=== PATIENT | female | born 2000 | race African-American/Black ===

== ENCOUNTER 2021-11-26 00:01 | Observation (INO) ==
[2021-11-26] MEDS ORDERED: KETOROLAC TROMETHAMINE 15 MG/ML VIAL IV STA (00:23)
[2021-11-26] MEDS ORDERED: ONDANSETRON INJ 2 MG/ML 2 ML VIAL IV STA ×2 (00:23→02:43)
--- NOTE | 2021-11-26 00:23 | Emergency Department Note ---
History of Present Illness General Chief complaint: Vomiting Stated complaint: VOMITING/CHILLS/DIARRHEA,NICHOLSON Time Seen by Provider: 11/26/21 00:12 History of Present Illness Maximum Pain Intensity: 8 This is a 21-year-old female that presents to the emergency department via private vehicle with complaints of "vomiting, chills, diarrhea, abdominal pain". Patient notes diarrhea over the past 2 days. Abdominal pain that started this morning, just under 24 hours ago. She then felt nauseous and slightly dizzy. She then notes that every time she goes to eat she vomits and has diarrhea. She has not been able to eat since yesterday. She does feel fever/chills at times. She denies any cough, rhinorrhea, chest pain, blood in the stool or vomit. The patient also notes generalized but also right lower quadrant abdominal pain which she currently rates as an 8/10. She does note a history of kidney stones as well as proteinuria. No allergies. No surgical history. She does note that she ate taco and [employer] just before this all started. She also notes a recent medication adjustment with addition of Seroquel 25 mg about 1 week ago Home Medications Medication Instructions Recorded Confirmed Type ondansetron HCl 4 mg tablet 4 mg PO Q8 PRN 10/12/21 11/26/21 History sertraline 50 mg tablet 50 mg PO HS 10/12/21 11/26/21 History quetiapine 25 mg tablet (Seroquel) 25 mg PO HS 11/26/21 11/26/21 History triamcinolone acetonide 0.5 % 1 applic TOPICAL BID 11/26/21 11/26/21 History topical cream Allergies Allergy/AdvReac Type Severity Reaction Status Date / Time No Known Allergies Allergy Verified 11/26/21 00:40 Past Med/Surg History Medical History Anxiety and depression HTN (hypertension) PCOS (polycystic ovarian syndrome) Proteinuria Right kidney stone Vitamin D deficiency Surgical History H/O wisdom tooth extraction Family History Grandmother Breast cancer Diabetes Hypertension Father Hypertension Diabetes Grandfather Diabetes Hypertension Social History Smoking Status: Never smoker Preferred Language: Korean current occupational status: student Feels Safe at Home: Yes Review of Systems A total of 10 systems reviewed and were otherwise negative Physical Exam Vital Signs Vital Signs - 24 hr 11/26/21 00:05 11/26/21 00:41 11/26/21 02:07 Temperature 36.3 C L Temperature Source Temporal Artery Scan Pulse Rate 113 H Pulse Rate [Finger] 102 H 99 H Pulse Rhythm [Finger] Regular Respiratory Rate 16 20 20 Respiratory Effort / Characteristics Non-Labored Spontaneous Non-Labored Non-Labored Spontaneous Respiratory Depth Normal Normal Respiratory Pattern Regular Regular Blood Pressure 119/62 Blood Pressure [Left Arm] 145/91 H 148/91 H Blood Pressure Mean 81 Blood Pressure Mean [Left Arm] 109 110 Blood Pressure Position Sitting Blood Pressure Position [Left Arm] Lying Pulse Oximetry 96 100 99 Oxygen Delivery Method Room Air Room Air Sepsis Recent Fever Within 48 Hours No Sepsis New/Unexplained Change in Mental Status N/A Sepsis Action Taken by Nursing No Action Required VITAL SIGNS - Vital signs and nursing notes were reviewed. Tachycardic, otherwise stable. GENERAL -21-year-old female appearing her stated age who is in no acute distress. Communicates well with provider and answers questions appropriately. SKIN - Without rashes. No meningeal or petechial rash. HEAD - NC/AT. EYES - PERRL with EOMI bilaterally. Sclera anicteric. MOUTH/OROPHARYNX - Without perioral cyanosis. Buccal mucosa pink and moist and without leukoplakia. NECK - Neck with FROM. No nuchal rigidity. LUNGS - Chest wall symmetric without accessory muscle use, intercostals retractions, or central cyanosis. Normal vesicular breath sounds CTA B/L. No wheezes, rales, or rhonchi appreciated. CARDIAC - RRR with S1/S2. No murmur, rubs, or gallops appreciated. ABDOMEN - Abdominal contour normal without pulsations or visible masses. BS normoactive all four quadrants. Generalized abdominal tenderness palpation, favoring the right lower quadrant region. No guarding or rigidity. No palpable masses, hepatosplenomegaly, or ascites noted. EXTREMITIES - No clubbing or peripheral cyanosis. +5/5 strength noted in UE/LE bilaterally. NEUROLOGIC - Cranial nerves II through XII grossly intact. PSYCH - A&O, and cooperates fully with examiner. Pt is very pleasant and interacts well with examiner. Course Administered Medications Discontinued Medications Sodium Chloride (Nss 1000ml) 1,000 mls @ 999 mls/hr IV .Q1H1M AUDELIA Stop: 11/26/21 01:30 Last Infusion: 11/26/21 01:58 Dose: 0 mls/hr Documented by: [id number] Admin: 11/26/21 00:36 Dose: 999 mls/hr Documented by: [id number] Sodium Chloride (Nss 1000ml) 1,000 mls @ 999 mls/hr IV .Q1H1M AUDELIA Stop: 11/26/21 03:45 Last Admin: 11/26/21 02:39 Dose: 999 mls/hr Documented by: [id number] Magnesium Sulfate/Dextrose (Magnesium Sulfate / D5w) 1 gm in 100 mls @ 100 mls/hr IV NOW STA Stop: 11/26/21 03:30 Last Infusion: 11/26/21 04:09 Dose: 0 mls/hr Documented by: [id number] Admin: 11/26/21 02:39 Dose: 100 mls/hr Documented by: [id number] Ioversol (Optiray 320 100ml) 94 ml IV ONCE ONE Stop: 11/26/21 01:28 Last Admin: 11/26/21 01:28 Dose: 94 ml Documented by: [id number] Ketorolac Tromethamine (Ketorolac Tromethamine 15 Mg/Ml Vial) 10 mg IV NOW STA Stop: 11/26/21 00:24 Last Admin: 11/26/21 00:36 Dose: 10 mg Documented by: [id number] Ondansetron HCl (Ondansetron Inj 2 Mg/Ml 2 Ml Vial) 4 mg IV NOW STA Stop: 11/26/21 00:24 Last Admin: 11/26/21 00:34 Dose: 4 mg Documented by: [id number] Ondansetron HCl (Ondansetron Inj 2 Mg/Ml 2 Ml Vial) 4 mg IV NOW STA Stop: 11/26/21 02:44 Last Admin: 11/26/21 02:46 Dose: 4 mg Documented by: [id number] Medical Decision Making Laboratory Data Result diagrams: 11/26/21 00:34 11/26/21 00:34 Lab Results 11/26/21 11/26/21 11/26/21 Range/Units 00:34 00:34 00:34 WBC 13.95 H (4.8-10.8) K/uL RBC 5.43 H (4.2-5.4) M/uL Hgb 14.1 (12.0-16.0) g/dL Hct 41.3 (37-47) % MCV 76.1 L (80-100) fL MCH 26.0 (25-34) pg MCHC 34.1 (32-36) g/dL RDW Std Deviation 38.7 (36.4-46.3) fL RDW Coeff of Morena 13.9 (11.5-14.5) % Plt Count 291 (130-400) K/uL MPV 9.1 (7.4-10.4) fL Immature Gran % (Auto) 0.4 % Neut % (Auto) 86.4 % Lymph % (Auto) 7.8 % Long % (Auto) 4.7 % Eos % (Auto) 0.6 % Baso % (Auto) 0.1 % Neut # (Auto) 12.07 H (1.4-6.5) K/uL Lymph # (Auto) 1.09 L (1.2-3.4) K/uL Long # (Auto) 0.65 H (0.11-0.59) K/uL Eos # (Auto) 0.08 (0-0.5) K/uL Baso # (Auto) 0.01 (0-0.2) K/uL Immature Gran # (Auto) 0.05 H (0.00-0.02) K/uL Sodium 135 L (136-145) mmol/L Potassium 3.8 (3.5-5.1) mmol/L Chloride 103 (98-107) mmol/L Carbon Dioxide 25 (21-32) mmol/L Anion Gap 7 (3-11) BUN 8 (6-23) mg/dl Creatinine 0.57 L (0.6-1.2) mg/dl Est Cr Clr Drug Dosing 182.3 ml/min Est GFR ( Amer) > 150.0 ml/min Est GFR (Non-Af Amer) 132.5 ml/min BUN/Creatinine Ratio 14.0 (10-20) Glucose 101 H (70-99(Fasting)) mg/dl Calcium 9.7 (8.5-10.1) mg/dl Magnesium 1.4 L (1.7-2.4) mg/dl Total Bilirubin 0.5 (0.2-1.0) mg/dl AST 16 (13-39) U/L ALT 18 (7-52) U/L Alkaline Phosphatase 62 (34-104) U/L Total Protein 7.9 (6.0-8.3) gm/dl Albumin 4.2 (3.4-5.0) gm/dl Globulin 3.7 (2.5-4.0) gm/dl Albumin/Globulin Ratio 1.1 (0.9-2) Lipase 35 (11-82) U/L HCG, Qual Negative (Negative) Urine Color Urine Appearance (Clear) Urine pH (4.5-7.5) Ur Specific Homer (1.000-1.030) Urine Protein (Negative) Urine Glucose (UA) (Negative) Urine Ketones (Negative) Urine Blood (Negative) Urine Nitrite (Negative) Urine Bilirubin (Negative) Urine Urobilinogen (Negative) Ur Leukocyte Esterase (Negative) Urine WBC (Auto) (0-5) /hpf Urine RBC (Auto) (0-4) /hpf U Hyaline Cast (Auto) (0-5) /lpf U Epithel Cells (Auto) (0-5) /lpf Urine Bacteria (Auto) (Negative) Stl C. cayetanensis PCR (NotDetected) Stool Rotavirus A PCR (NotDetected) Stl Adenov F 40/41 PCR (NotDetected) Stool Astrovirus (PCR) (NotDetected) Stool Campylobacter PCR (NotDetected) Stl C. diff Tox A/B PCR (NotDetected) Stool Cryptosporidium PCR (NotDetected) Stl E.coli Shiga Tox PCR (NotDetected) Stl Enterotoxigenic E PCR (NotDetected) Stool EPEC (PCR) (NotDetected) Stool EAEC (PCR) (NotDetected) Stl E. histolytica PCR (NotDetected) Stool Giardia Lamblia PCR (NotDetected) Stool Salmonella PCR (NotDetected) Stool Sapovirus (PCR) (NotDetected) Stl P. shigelloides PCR (NotDetected) Stl Shigella/EIEC PCR (NotDetected) St Y.enterocolitica PCR (NotDetected) Stool Vibrio (PCR) (NotDetected) Stl Vibrio cholerae PCR (NotDetected) Stl Norovirus GI/GII PCR (NotDetected) SARS-CoV-2 (PCR) (Negative) Influenza Type A (PCR) (Neg) Influenza Type B (PCR) (Neg) RSV (RT-PCR) (Neg) 11/26/21 11/26/21 11/26/21 Range/Units 00:35 00:37 00:37 WBC (4.8-10.8) K/uL RBC (4.2-5.4) M/uL Hgb (12.0-16.0) g/dL Hct (37-47) % MCV (80-100) fL MCH (25-34) pg MCHC (32-36) g/dL RDW Std Deviation (36.4-46.3) fL RDW Coeff of Morena (11.5-14.5) % Plt Count (130-400) K/uL MPV (7.4-10.4) fL Immature Gran % (Auto) % Neut % (Auto) % Lymph % (Auto) % Long % (Auto) % Eos % (Auto) % Baso % (Auto) % Neut # (Auto) (1.4-6.5) K/uL Lymph # (Auto) (1.2-3.4) K/uL Long # (Auto) (0.11-0.59) K/uL Eos # (Auto) (0-0.5) K/uL Baso # (Auto) (0-0.2) K/uL Immature Gran # (Auto) (0.00-0.02) K/uL Sodium (136-145) mmol/L Potassium (3.5-5.1) mmol/L Chloride (98-107) mmol/L Carbon Dioxide (21-32) mmol/L Anion Gap (3-11) BUN (6-23) mg/dl Creatinine (0.6-1.2) mg/dl Est Cr Clr Drug Dosing ml/min Est GFR ( Amer) ml/min Est GFR (Non-Af Amer) ml/min BUN/Creatinine Ratio (10-20) Glucose (70-99(Fasting)) mg/dl Calcium (8.5-10.1) mg/dl Magnesium (1.7-2.4) mg/dl Total Bilirubin (0.2-1.0) mg/dl AST (13-39) U/L ALT (7-52) U/L Alkaline Phosphatase (34-104) U/L Total Protein (6.0-8.3) gm/dl Albumin (3.4-5.0) gm/dl Globulin (2.5-4.0) gm/dl Albumin/Globulin Ratio (0.9-2) Lipase (11-82) U/L HCG, Qual (Negative) Urine Color Yellow Urine Appearance Clear (Clear) Urine pH 5.0 (4.5-7.5) Ur Specific Homer 1.019 (1.000-1.030) Urine Protein 2+ H (Negative) Urine Glucose (UA) Negative (Negative) Urine Ketones Trace H (Negative) Urine Blood Negative (Negative) Urine Nitrite Negative (Negative) Urine Bilirubin Negative (Negative) Urine Urobilinogen Negative (Negative) Ur Leukocyte Esterase Negative (Negative) Urine WBC (Auto) 1-5 (0-5) /hpf Urine RBC (Auto) 0-4 (0-4) /hpf U Hyaline Cast (Auto) 5-10 H (0-5) /lpf U Epithel Cells (Auto) >30 H (0-5) /lpf Urine Bacteria (Auto) 1+ H (Negative) Stl C. cayetanensis PCR Not Detected (NotDetected) Stool Rotavirus A PCR Not Detected (NotDetected) Stl Adenov F 40/41 PCR Not Detected (NotDetected) Stool Astrovirus (PCR) Not Detected (NotDetected) Stool Campylobacter PCR Not Detected (NotDetected) Stl C. diff Tox A/B PCR Not Detected (NotDetected) Stool Cryptosporidium PCR Not Detected (NotDetected) Stl E.coli Shiga Tox PCR Not Detected (NotDetected) Stl Enterotoxigenic E PCR Not Detected (NotDetected) Stool EPEC (PCR) Not Detected (NotDetected) Stool EAEC (PCR) Not Detected (NotDetected) Stl E. histolytica PCR Not Detected (NotDetected) Stool Giardia Lamblia PCR Not Detected (NotDetected) Stool Salmonella PCR Not Detected (NotDetected) Stool Sapovirus (PCR) Not Detected (NotDetected) Stl P. shigelloides PCR Not Detected (NotDetected) Stl Shigella/EIEC PCR Not Detected (NotDetected) St Y.enterocolitica PCR Not Detected (NotDetected) Stool Vibrio (PCR) Not Detected (NotDetected) Stl Vibrio cholerae PCR Not Detected (NotDetected) Stl Norovirus GI/GII PCR DETECTED A* (NotDetected) SARS-CoV-2 (PCR) NEGATIVE (Negative) Influenza Type A (PCR) Negative (Neg) Influenza Type B (PCR) Negative (Neg) RSV (RT-PCR) Negative (Neg) Imaging Data Radiologist's Impression: CT ABDOMEN & PELVIS With Contrast: The stomach is mildly distended with gas and fluid. No gastric mucosal abnormality or evidence for gastric obstruction identified. No bowel obstruction. Mildly prominent fluid in the ascending colon is presumed normal variation or with complete decompression of the left colon. No significant stool burden. No free intraperitoneal fluid or pneumoperitoneum. Normal caliber appendix in the right lower quadrant. The liver, gallbladder, pancreas, spleen, adrenal glands and kidneys are unr emarkable. Bladder is decompressed without significant wall abnormalities or calcifications. No acute osseous or significant overlying soft tissue abnormality. Radiologist: Neymar Branch MD Study ready at 01:39 and initial results transmitted at 01:57 MDM Narrative Patient was seen and evaluated as above in room A09. Review was performed of nursing notes and vital signs. I did review pertinent previous visits and patient history. After obtaining a thorough history and physical examination the above work up was performed. Patient presents to us today with nausea, vomiting and abdominal pain. She rates her abdominal pain at this time as an 8/10. She cannot eat or drink without vomiting despite having Zofran at home. She is tender throughout the abdomen without any guarding or rigidity. Options of care were discussed with the patient. IV access was established. Labs were drawn. There is leukocytosis 13.95. No anemia. No emergent metabolic disturbance. Mild hyponatremia at 135. Hypomagnesemia 1.4. She was hydrated with IV normal saline x2 L as well as magnesium repletion via 1 g x 1 IV. Urinalysis does not suggest infection. Stool sample positive for norovirus which certainly could explain her clinical presentation. Covid, influenza and RSV testing negative. Given the patient's 8 of 10 abdominal pain I do believe that CT imaging of the abdomen and pelvis is warranted pending work-up. Patient in agreement. CT scan as above. No evidence of surgical process by imaging. The patient despite 2 rounds of antiemetics here as well as antiemetics at home continues to have nausea and vomiting. I will also note that she continues to be tachycardic despite nearly 2 L of intravenous fluids. I do believe that she has a component of dehydration as well. Options of care were discussed with the patient. At this time I do believe that further evaluation and management is warranted in the inpatient setting. Patient in agreement and amenable to plan of care. Case discussed with the hospitalist. Please refer to further documentation regarding her stay Case was discussed with the attending physician. GCS: 15 In the evaluation and treatment of this patient the following differential diagnoses were entertained: Acute abdomen, UTI, pyelonephritis, appendicitis, bowel obstruction, diverticulitis, ovarian torsion, viral gastroenteritis, bacterial ideology, among others. Impression & Plan Norovirus, Nausea & vomiting, Acute generalized abdominal pain Discharge Plan Visit Data Chief Complaint: Vomiting Stated Complaint: VOMITING/CHILLS/DIARRHEA,NICHOLSON ED Provider: Micheal Martinez ED Midlevel Provider: Leonardo Stevens Discharge Problem: Norovirus, Nausea & vomiting, Acute generalized abdominal pain Patient Disposition: Admitted As Inpatient Condition: Good Forms Stand Alone Forms: [facility] Prescriptions Prescriptions: No Action ondansetron HCl 4 mg tablet 4 mg PO Q8 PRN (Reason: Nausea And Vomiting) RF: 0 sertraline 50 mg tablet 50 mg PO HS RF: 0 quetiapine [Seroquel] 25 mg Tablet 25 mg PO HS RF: 0 triamcinolone acetonide 0.5 % cream 1 applic TOPICAL BID RF: 0 Referrals Referrals: [facility] [Primary Care Provider] -
[2021-11-26] MEDS ORDERED: SODIUM CHLORIDE 0.9% 1000ML 1,000 ML IV SCH ×2 (00:30→02:45)
[2021-11-26 00:46] LABS: Basophils # (auto) 0.01 K/uL (0-0.2); Basophils % (auto) 0.1 %; Eosinophils # (auto) 0.08 K/uL (0-0.5); Eosinophils % (auto) 0.6 %; Hematocrit (blood only) 41.3 % (37-47); Hemoglobin 14.1 g/dL (12.0-16.0); Immature Granulocytes # (auto) 0.05 K/uL (0.00-0.02); Immature Granulocytes % (auto) 0.4 %; Lymphocytes # (auto) 1.09 K/uL (1.2-3.4); Lymphocytes % (auto) 7.8 %; Mean Corpuscular Hgb Conc 34.1 g/dL (32-36); Mean Corpuscular Volume 76.1 fL (80-100); Mean Platelet Volume 9.1 fL (7.4-10.4); Monocytes # (auto) 0.65 K/uL (0.11-0.59); Monocytes % (auto) 4.7 %; Neutrophils # (auto) 12.07 K/uL (1.4-6.5); Neutrophils % (auto) 86.4 %; Platelet Count 291 K/uL (130-400); RDW Coefficient of Variation 13.9 % (11.5-14.5); RDW Standard Deviation 38.7 fL (36.4-46.3); Red Blood Count 5.43 M/uL (4.2-5.4); White Blood Count 13.95 K/uL (4.8-10.8)
[2021-11-26 01:01] LABS: Pregnancy Test, Serum Negative (Negative)
[2021-11-26 01:09] LABS: Alanine Aminotransferase 18 U/L (7-52); Albumin Globulin Ratio 1.1 (0.9-2); Albumin Level 4.2 gm/dl (3.4-5.0); Alkaline Phosphatase 62 U/L (34-104); Anion Gap 7 (3-11); Aspartate Aminotransferase 16 U/L (13-39); Bilirubin,Total 0.5 mg/dl (0.2-1.0); Blood Urea Nitrogen 8 mg/dl (6-23); Calcium 9.7 mg/dl (8.5-10.1); Carbon Dioxide 25 mmol/L (21-32); Chloride 103 mmol/L (98-107); Creatinine Clr Calc Pharmacy 182.3 ml/min; Est GFR (African American) > 150.0 ml/min; Est GFR (Non-African American) 132.5 ml/min; Globulin 3.7 gm/dl (2.5-4.0); Glucose 101 mg/dl (70-99(Fasting)); Lipase 35 U/L (11-82); Magnesium 1.4 mg/dl (1.7-2.4); Potassium 3.8 mmol/L (3.5-5.1); Sodium 135 mmol/L (136-145); Total Protein 7.9 gm/dl (6.0-8.3)
[2021-11-26 01:11] LABS: Appearance Urine Clear (Clear); Bacteria Urine Automated 1+ (Negative); Bilirubin Urine Negative (Negative); Blood Urine Negative (Negative); Color Urine Yellow; Epithelial Cell Urine Auto >30 /lpf (0-5); Glucose Urine UA Negative (Negative); Ketones Urine Trace (Negative); Leukocyte Esterase Urine Negative (Negative); Nitrite Urine Negative (Negative); Protein Urine 2+ (Negative); RBC Urine Automated 0-4 /hpf (0-4); Specific Gravity Urine 1.019 (1.000-1.030); Urobilinogen Urine Negative (Negative)
[2021-11-26] MEDS ORDERED: OPTIRAY 320 100ml IV ONE (01:27)
[2021-11-26 01:36] LABS: Influenza A virus by PCR Negative (Neg); Influenza B virus by PCR Negative (Neg); RSV by PCR Negative (Neg); SARS CoV2 RNA(COVID-19) InHosp NEGATIVE (Negative)
[2021-11-26 02:26] LABS: Adenovirus F 40/41 PCR Not Detected (NotDetected); Astrovirus PCR Not Detected (NotDetected); Campylobacter PCR Not Detected (NotDetected); Clostridium diff Toxin A/B PCR Not Detected (NotDetected); Cryptosporidium PCR Not Detected (NotDetected); Cyclospora cayetanensis PCR Not Detected (NotDetected); Entamoeba histolytica PCR Not Detected (NotDetected); Enteroaggregative E.coli(EAEC) Not Detected (NotDetected); Enteropathogenic E.coli (EPEC) Not Detected (NotDetected); Enterotoxigenic E.coli (ETEC) Not Detected (NotDetected); Giardia lamblia PCR Not Detected (NotDetected); Plesiomonas shigelloides PCR Not Detected (NotDetected); Rotavirus A PCR Not Detected (NotDetected); Salmonella PCR Not Detected (NotDetected); Sapovirus PCR Not Detected (NotDetected); Shiga-like Toxin E.coli (STEC) Not Detected (NotDetected); Shigella/Enteroinvasive E.coli Not Detected (NotDetected); Vibrio cholerae PCR Not Detected (NotDetected); Vibrio species PCR Not Detected (NotDetected); Yersinia enterocolitica PCR Not Detected (NotDetected)
[2021-11-26 02:29] LABS: Norovirus GI/GII PCR DETECTED (NotDetected)
[2021-11-26] MEDS ORDERED: MAGNESIUM SULFATE / D5W 1 GM/100 ML BAG IV STA ×2 (02:31→04:41)
[2021-11-26] MEDS ORDERED: ACETAMINOPHEN 1,000 MG/100 ML VIAL IV STA (04:42)
--- NOTE | 2021-11-26 05:03 | History & Physical Report ---
Date of Service November 26, 2021 Assessment & Plan (1) Gastroenteritis due to norovirus: (2) Bipolar depression: (3) Anxiety and depression: Plan: Twan Cervantes is a 21-year-old female with PMH of bipolar depression, hypertension, ureteral stone, vitamin D deficiency, COVID19 who arrived to [facility] due to 2 days of ongoing diarrhea and 1 day of abdominal pain. Found to be positive for norovirus. Gastroenteritis due to norovirus - Admit to [facility] for observation - With leukocytosis reactive to GI infection/vomiting/diarrhea - IV hydration due to intolerance of PO hydration/nutrition -- NSS at 125cc/hr - Will order clear liquid diet -- can advance as tolerated - IV zofran prn for nausea control - APAP prn for pain or fevers - AM BMP to monitor electrolytes -- replete as needed - Contact isolation due to norovirus Hypomagnesemia - Received 1g mag sulfate in ED - Will order additional 2g - Repeat Mag with AM labs Bipolar depression/anxiety - Continue home sertraline and quetiapine Proteinuria/abnormal UA - UA showing 2+ protein, as well as trace ketones, 1+ bacteria - Has followed with [facility] nephrology for proteinuria ever since she had a right ureteral stone in May - Last saw Dr. Ball Sep with ongoing workup and unclear etiology of proteinuria - Urine culture ordered in ED but at this time patient asymptomatic from urinary standpoint - Can consider further workup while inpatient for proteinuria vs. nephro consult CODE STATUS: Full Diet: Clears, advance as tolerated, NSS at 125cc/h for maintenance [facility] ppx: SCDs History of Present Illness Primary Care Provider: [facility] Twan Cervantes is a 21-year-old female with PMH of bipolar depression, hypertension, ureteral stone, vitamin D deficiency, COVID19 who arrived to [facility] due to 2 days of ongoing diarrhea and 1 day of abdominal pain. She also had nausea, vomiting, and dizziness today. Mentions that she has been vomiting anything she tries to eat. Has felt feverish and had chills. In the ED patient received NSS 2L bolus, 2 doses of IV Zofran, Toradol 10mg IV x1, and magnesium sulfate 1g IV x1. Her labs showed mild WBC elevation at 13.95 with neutrophilic predominance, normal Hgb, sodium of 135, potassium 3.8, and magnesium 1.4. Her stool PCR was positive for norovirus. Currently patient feeling somewhat nauseous and complaining of a mild headache. Mentions she tried to drink some water earlier and immediately vomited up more than she had consumed. Also has some mild diffuse abdominal pain. Otherwise denying f/c, CP, palp, SOB, cough, bloody stools, urinary symptoms, weakness, numbness. Allergies Allergy/AdvReac Type Severity Reaction Status Date / Time No Known Allergies Allergy Verified 11/26/21 00:40 Home Medications Medication Instructions Recorded Confirmed Type ondansetron HCl 4 mg tablet 4 mg PO Q8 PRN 10/12/21 11/26/21 History sertraline 50 mg tablet 50 mg PO HS 10/12/21 11/26/21 History quetiapine 25 mg tablet (Seroquel) 25 mg PO HS 11/26/21 11/26/21 History triamcinolone acetonide 0.5 % 1 applic TOPICAL BID 11/26/21 11/26/21 History topical cream Past Med/Surg History Medical History (Updated 11/26/21 @ 04:52 by Oniel Muniz MD) Anxiety and depression HTN (hypertension) PCOS (polycystic ovarian syndrome) Proteinuria Right kidney stone Vitamin D deficiency Surgical History H/O wisdom tooth extraction Family History Grandmother Breast cancer Diabetes Hypertension Father Hypertension Diabetes Grandfather Diabetes Hypertension Social History Smoking Status: Never smoker Hx Alcohol Use: No Hx Substance Use: No Preferred Language: Belarusian Communication Ability: Effective Boat Driver Required: No Beliefs That Will Affect Care: None Current Living Situation: Other Current Living Situation Comment: on campus current occupational status: student Other Information That Helps Us Care for You: No Feels Safe at Home: Yes Safety Concerns: Feels Safe At This Time Assistive Devices: None Review of Systems Review of Systems: All systems reviewed & are unremarkable except as noted in HPI & below Physical Exam Physical Exam: GENERAL: A&Ox3. NAD. HEENT: PERRL, EOMI. Mucous membranes somewhat dry. CHEST/LUNGS: CTAB A/P. No crackles, wheezes, rales, rhonchi. HEART: RRR. No m/g/r. No carotid bruits. ABDOMEN: NT/ND, soft. BS+ x4 EXTREMITIES: No cyanosis, no clubbing, no edema SKIN: Warm and dry. No rashes or lesions. PSYCHIATRIC: Euthymic affect, no SI, no pressured speech, no hallucinations NEUROLOGIC: No FND. CN II-XII grossly intact. Results & Data Results & Data ([facility]) Vital Signs (Past 12 Hours) Vital Signs Temp Pulse Pulse Resp BP BP Pulse Ox 11/26/21 02:07 99 H 20 148/91 H 99 11/26/21 00:41 102 H 20 145/91 H 100 11/26/21 00:05 36.3 C L 113 H 16 119/62 96 Code Status & VTE Plan VTE Prophylaxis Plan VTE Prophylaxis will be ordered: Yes Supervising Physician Co-Signing Physician Notes Attending addendum: I have physically seen this patient, have supervised the medical residents activities, and agree with the H&P unless as otherwise noted. Assessment and Plan: Gastroenteritis due to norovirus- Symptomatic treatment with Zofran IV, famotidine IV Clear liquid diet NSS at 125 mils per hour Contact precautions Hypomagnesemia- Magnesium 1.4 upon admission given magnesium sulfate 1 g IV from the ED, will add additional 2 mg, and then recheck laboratories in a.m. Bipolar/depression/anxiety- Continue sertraline and quetiapine Remaining orders and notations as noted Resident Activity Tracking Resident Involvement: Resident Care Provided Care Provided: Adult Hospital Medicine
[2021-11-26] MEDS ORDERED: ONDANSETRON INJ 2 MG/ML 2 ML VIAL IV PRN (06:18)
[2021-11-26] MEDS ORDERED: MAGNESIUM HYDROXIDE SUSP 30 ML UDC PO PRN (06:18)
[2021-11-26] MEDS ORDERED: ALUMINUM/MAGNESIUM SUSP 30 ML UDC PO PRN (06:18)
[2021-11-26] MEDS ORDERED: ONDANSETRON 4 MG OD TAB PO PRN (06:22)
--- NOTE | 2021-11-26 07:26 | CT Scan Report ---
CT abd pelvis IV con only CLINICAL HISTORY: abd pain, nausea and vomiting COMPARISON STUDY: 07/07/2021 CT DOSE: 793.84 mGy.cm TECHNIQUE: Standard CT of the Abdomen and Pelvis was performed with IV contrast. A dose lowering chet hnique was utilized adhering to the principles of ALARA. Contrast Volume: Optiray 320, 94 ml. The patient did not receive oral contrast. FINDINGS: Lung base: The lung bases are clear. Abdominal cavity: There is no evidence for abdominal mass, adenopathy or ascites. Liver: There is homogeneous attenuation of the liver parenchyma. There is no evidence for enhancing m ass lesion. Spleen: There is homogeneous attenuation of the splenic parenchyma. There is no enhancing mass lesion . Pancreas: There is homogeneous attenuation of the pancreatic parenchyma. There is no evidence for mas s lesion or peripancreatic fluid collection. Gall Bladder: The gallbladder is well distended with no evidence for intraluminal calculi, wall thick ening or pericholecystic edema. Adrenal glands: The adrenal glands are normal in size and attenuation. There is no evidence for enhan cing mass lesion. Kidneys: There is homogeneous attenuation of the renal parenchyma bilaterally. There is no evidence f or renal calculus or hydronephrosis. There is no evidence for enhancing mass. Bowel: There are fluid-filled loops of small bowel throughout the abdomen and pelvis without evidence for disproportionate dilatation or obstruction. Findings are most characteristic of a mild ileus thong young gastroenteritis. There is no evidence for mass lesion. There are no inflammatory changes present. There is no evidence for free air. There is a normal appendix in the right lower quadrant. Bladder: The bladder is within normal limits with no evidence for focal mass, calculus or diverticulu m. : There is no evidence for pelvic mass or adenopathy. There is no evidence for pelvic ascites. Vasculature: There is no evidence for aneurysmal dilatation of the abdominal aorta. Osseous structures: There is no acute osseous pathology. IMPRESSION: 1. CT findings most characteristic of a mild ileus versus gastroenteritis. 2. No evidence for bowel obstruction. 3. Normal appendix. ACT 112: Negative or not required by law. Electronically signed by: Cody Caceres M.D. 11/26/2021 7:24 AM
[2021-11-26] MEDS ORDERED: MAGNESIUM SULFATE / D5W 1 GM/100 ML BAG IV SCH (07:30)
[2021-11-26] MEDS: SODIUM CHLORIDE 0.9% 1000ML 1,000 ML IV SCH ×3 (07:37→23:22)
[2021-11-26] MEDS: TRIAMCINOLONE ACET 0.5% CR 15 GM TUBE TOP SCH ×2 (08:08→22:20)
[2021-11-26] MEDS: ACETAMINOPHEN 325 MG TAB PO PRN ×2 (11:29→19:24)
--- NOTE | 2021-11-26 15:20 | Hospitalist Progress Note ---
Date of Service November 26, 2021 Assessment & Plan (1) Gastroenteritis due to norovirus: (2) Bipolar depression: (3) Anxiety and depression: Plan: Twan Cervantes is a 21-year-old female with PMH of bipolar depression, hypertension, ureteral stone, vitamin D deficiency, COVID19 who arrived to [facility] due to 2 days of ongoing diarrhea and 1 day of abdominal pain. Found to be positive for norovirus. Gastroenteritis due to norovirus - Admit to [facility] for observation - With leukocytosis reactive to GI infection/vomiting/diarrhea - IV hydration due to intolerance of PO hydration/nutrition -- NSS at 125cc/hr - Will order clear liquid diet -- can advance as tolerated - IV zofran prn for nausea control - APAP prn for pain or fevers - AM BMP to monitor electrolytes -- replete as needed - Contact isolation due to norovirus Hypomagnesemia - Received 1g mag sulfate in ED - Will order additional 2g - Repeat Mag with AM labs Bipolar depression/anxiety - Continue home sertraline and quetiapine Proteinuria/abnormal UA - UA showing 2+ protein, as well as trace ketones, 1+ bacteria - [place] [facility] [place] for proteinuria ever since she had a right ureteral stone in May - Last saw Dr. Ball Sep with ongoing workup and unclear etiology of proteinuria - Urine culture ordered in ED but at this time patient asymptomatic from urinary standpoint - Can consider further workup while inpatient for proteinuria vs. nephro consult CODE STATUS: Full Diet: Clears, advance as tolerated, NSS at 125cc/h for maintenance Dispo: Admit to [facility] DVT ppx: SCDs Admission and Anticipated Discharge Date Admission Date: November 26, 2021 Subjective Patient seen at bedside this morning. Results & Data Results & Data ([facility]) Vital Signs (Past 12 Hours) Vital Signs Temp Pulse Pulse Resp BP BP BP 11/26/21 14:43 37 C 97 H 16 124/75 11/26/21 11:22 37.6 C H 11/26/21 07:15 37.4 C 96 H 18 127/55 L 11/26/21 06:21 107 H 20 120/91 11/26/21 05:01 37.6 C H 107 H 20 138/91 11/26/21 04:09 107 H 16 143/79 H Pulse Ox 11/26/21 14:43 94 11/26/21 11:22 11/26/21 07:15 93 11/26/21 06:21 96 11/26/21 05:01 98 11/26/21 04:09 98
--- NOTE | 2021-11-26 20:54 | Billing Data ---
Date of Service November 26, 2021 Coding Level of Care Code INT OBSERVATION CARE 70M LVL 3
[2021-11-26] MEDS ORDERED: QUEtiapine FUMARATE 25 MG TABLET PO SCH (21:00)
[2021-11-26] MEDS ORDERED: SERTRALINE HCL 50 MG TABLET PO SCH (21:00)
[2021-11-26] MEDS ORDERED: CALCIUM CARBONATE 500 MG CHEWABLE TAB ONE (23:35)
[2021-11-26] MEDS ORDERED: CALCIUM CARBONATE 500 MG CHEWABLE TAB PO PRN (23:43)
[2021-11-27 06:41] LABS: Basophils # (auto) 0.01 K/uL (0-0.2); Basophils % (auto) 0.1 %; Eosinophils # (auto) 0.08 K/uL (0-0.5); Hematocrit (blood only) 35.6 % (37-47); Hemoglobin 11.9 g/dL (12.0-16.0); Immature Granulocytes # (auto) 0.01 K/uL (0.00-0.02); Immature Granulocytes % (auto) 0.1 %; Lymphocytes # (auto) 3.23 K/uL (1.2-3.4); Lymphocytes % (auto) 40.9 %; Mean Corpuscular Hemoglobin 25.6 pg (25-34); Mean Corpuscular Hgb Conc 33.4 g/dL (32-36); Mean Corpuscular Volume 76.7 fL (80-100); Monocytes # (auto) 0.79 K/uL (0.11-0.59); Neutrophils # (auto) 3.77 K/uL (1.4-6.5); Neutrophils % (auto) 47.9 %; Platelet Count 249 K/uL (130-400); RDW Coefficient of Variation 14.1 % (11.5-14.5); RDW Standard Deviation 39.9 fL (36.4-46.3); Red Blood Count 4.64 M/uL (4.2-5.4); White Blood Count 7.89 K/uL (4.8-10.8)
[2021-11-27 07:04] LABS: Anion Gap 2 (3-11); BUN Creatinine Ratio 6.9 (10-20); Blood Urea Nitrogen 4 mg/dl (6-23); Calcium 8.1 mg/dl (8.5-10.1); Carbon Dioxide 25 mmol/L (21-32); Chloride 108 mmol/L (98-107); Creatinine Clr Calc Pharmacy 179.2 ml/min; Est GFR (African American) > 150.0 ml/min; Est GFR (Non-African American) 131.8 ml/min; Glucose 89 mg/dl (70-99(Fasting)); Magnesium 1.7 mg/dl (1.7-2.4); Phosphorus 2.3 mg/dl (2.5-4.9); Potassium 3.7 mmol/L (3.5-5.1); Sodium 135 mmol/L (136-145)
[2021-11-27] MEDS: SODIUM CHLORIDE 0.9% 1000ML 1,000 ML IV SCH (07:56)
[2021-11-27] MEDS: ACETAMINOPHEN 325 MG TAB PO PRN (07:59)
[2021-11-27] MEDS: TRIAMCINOLONE ACET 0.5% CR 15 GM TUBE TOP SCH (08:01)
--- NOTE | 2021-11-27 09:38 | Discharge Summary ---
Date of Service November 27, 2021 Admission HPI Per Admitting Provider Twan Cervantes is a 21-year-old female with PMH of bipolar depression, hypertension, ureteral stone, vitamin D deficiency, COVID19 who arrived to [facility] due to 2 days of ongoing diarrhea and 1 day of abdominal pain. She also had nausea, vomiting, and dizziness today. Mentions that she has been vomiting anything she tries to eat. Has felt feverish and had chills. In the ED patient received NSS 2L bolus, 2 doses of IV Zofran, Toradol 10mg IV x1, and magnesium sulfate 1g IV x1. Her labs showed mild WBC elevation at 13.95 with neutrophilic predominance, normal Hgb, sodium of 135, potassium 3.8, and magnesium 1.4. Her stool PCR was positive for norovirus. Currently patient feeling somewhat nauseous and complaining of a mild headache. Mentions she tried to drink some water earlier and immediately vomited up more than she had consumed. Also has some mild diffuse abdominal pain. Otherwise denying f/c, CP, palp, SOB, cough, bloody stools, urinary symptoms, weakness, numbness. Principal Diagnosis Dehydration secondary to enterocolitis secondary to norovirus. Discharge Exam Constitutional WD/WN, vitals as above Eyes PERRL, conjunctivae normal, anicteric sclerae Neck trachea midline, no thyromegaly Respiratory normal respiratory effort, lungs clear to auscultation Cardiovascular RRR, no murmur, no edema Gastrointestinal (Abdomen) normal bowel sounds, soft, nontender, no hepatosplenomegaly Musculoskeletal Head/Neck/Chest: normocephalic and head atraumatic Skin no rashes, warm and dry Neurologic moves all extremities Psychiatric A+Ox3, euthymic affect Discharge Data Allergies Allergy/AdvReac Type Severity Reaction Status Date / Time No Known Allergies Allergy Verified 11/26/21 00:40 Consultations 11/26/21 04:32 ED Decision to Admit Stat Ordered Studies 11/26/21 00:24 CT abd pelvis IV con only Urgent Hospital Course (1) Gastroenteritis due to norovirus: (2) Bipolar depression: (3) Anxiety and depression: Twan Cervantes is a 21-year-old female with PMH of bipolar depression, hypertension, ureteral stone, vitamin D deficiency, COVID19 who arrived to [facility] due to 2 days of ongoing diarrhea and 1 day of abdominal pain. Found to be positive for norovirus. Gastroenteritis due to norovirus - Discharged home under self-care, patient able to tolerate eating and oral hydration. - With leukocytosis reactive to GI infection/vomiting/diarrhea, resolved - Patient received IV fluids to reestablish hydration - Patient was able to tolerate breakfast prior to discharge - IV zofran prn for nausea control - APAP prn for pain or fevers - AM BMP to monitor electrolytes --electrolytes remain normal throughout hospitalization - Pt was on contact isolation due to norovirus Hypomagnesemia - Received 1g mag sulfate in ED Bipolar depression/anxiety - Continue home sertraline and quetiapine Proteinuria/abnormal UA - UA showing 2+ protein, as well as trace ketones, 1+ bacteria - Has followed with [facility] [place] for proteinuria ever since she had a right ureteral stone in May - Last saw Dr. Ball Sep with ongoing workup and unclear etiology of proteinuria - Urine culture ordered in ED but at this time patient asymptomatic from urinary standpoint CODE STATUS: Full Diet: Clears, advance as tolerated, NSS at 125cc/h for maintenance Dispo: Discharge home under self-care DVT ppx: SCDs Total Time Total Time Spent Total Time Spent (In Minutes): <30 Discharge Plan Discharge Items Patient Disposition: Home - Self-Care Reason For Visit: ABD PAIN, DIARRHEA Discharge Diagnosis: Dehydration secondary to Enterocolitis secondary to Norovirus Condition on Discharge: Good Activity: Per Instructions section Non-emergency contact: Primary Care Provider Call non-emergency contact if: you have any medication questions and your symptoms worsen Follow-up/Referrals: [facility] [Primary Care Provider] - Diet: Regular Addtl Attending Provider Instructions: You were admitted to the hospital for dehydration secondary to enterocolitis caused by norovirus infection. While you were here you received IV fluids to reestablish hydration in addition to nausea medication to help you to be able to eat. By the time of discharge you were able to eat food as well as drink fluid and at that time it was deemed that you were stable to be discharged home. For the next few days you may continue to feel nauseated and have loose bowel movements. It is important to keep up with oral hydration and I recommend that you try to stay as close to taking in at least 2 L of water a day to maintain hydration. Please follow-up with your primary care provider within 1 week. It has been a pleasure to be a part of your care and we wish you the best in your health and your recovery. Pending Studies at Discharge: No Stand-Alone Forms: My [facility], Smoking Cessation Medications and DC Order Prescriptions: Continued ondansetron HCl 4 mg tablet 4 mg PO Q8 PRN (Reason: Nausea And Vomiting) RF: 0 sertraline 50 mg tablet 50 mg PO HS RF: 0 quetiapine [Seroquel] 25 mg Tablet 25 mg PO HS RF: 0 triamcinolone acetonide 0.5 % cream 1 applic TOPICAL BID RF: 0 Discharge Orders: Discharge Order (Routine); Ordered 11/27/21 Ordered By: Javon Oconnor/Other Patient Handouts: Understanding Norovirus Admission Data Admit Date/Time: 11/26/21 04:41 Attending Provider: Urban Diez Admit Provider: Oniel Muniz Primary Care Provider: Herman,[facility] Other Providers: Renny Tsai Other Interventions: Discharge Summary Assessment (RN) Last Done: 11/27/21 11:59 Supervising Physician Co-Signing Physician Notes I personally examined the patient and verified all blanchard points of history and exam, discussed case, and agree with decision making with Dr Burgos feeling better. eating OK feels up to going home wants to go home. 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 did have some upset stomach after eating eggs vitals noted nad heent nc at mmm breathing unlabored no accessory muscles good effort skin no rashes no pallor or icterus viral GE caused by norovirus - improving. stable for home. PO fluids/PO intake. discussed BRAT diet since eggs didnt sit well.
--- NOTE | 2021-11-27 15:56 | Billing Data ---
Date of Service November 27, 2021 Coding Level of Care Code 49944 OBS Care - Discharge
== END 2021-11-27 12:51 | disposition home or self-care (01) ==
LOC: ED 00:01 → 3N 00:01 → SUATTDRO 04:41 → 3N 06:21